=== PATIENT | female | born 1955 ===

== ENCOUNTER 2020-09-29 20:14 | Emergency (ER) | payer MEDICARE, MEDICAID ==
[~2020-09-29] VITALS: Ht 162.6 cm; Wt 74.8 kg
[2020-09-29 20:21] VITALS: BP 138/74
--- NOTE | 2020-09-29 20:30 | NUR ---
PT AMBULATED FROM EMS [facility]NEY TO ER BED 6
--- NOTE | 2020-09-29 20:43 | NUR ---
X-Ray at bedside.
--- NOTE | 2020-09-29 21:15 | NUR ---
Dr. Cha examining patient.
--- NOTE | 2020-09-29 21:25 | NUR ---
64 YO F BIBA AFTER MECHANICAL FALL AT [facility] WITH C/O PAIN TO R ANKLE, R ARM, AND R SHOULDER PAIN 0/10. LIMITED ROM OF R FOOT, PEDAL PULSE STRONG AND BILAT, AND WARM TO TOUCH. NO BRUISES PRESENT. PT DENIED HITTING HEAD. BED LOCKED IN LOWEST POSITION, SIDE RAILS X2. HX: HTN, SCHIZOPHRENIA, AND DM RX: WASNT ABLE TO RECALL NKA
--- NOTE | 2020-09-29 22:00 | NUR ---
PTS RIGHT FOOR WAS PLACED IH A SHORT POSTERIOR SPLINT. PTS PMSC WNL. PT WAS ALSO GIVEN CRUTCHES, PTS SHOWED GOOD USE OF CRUTCHES.
[2020-09-29 22:09] VITALS: BP 138/74
--- NOTE | 2020-09-29 22:15 | NUR ---
Catherine burroughs in EDM - 09/30/20 at 0530 by MED PTS RIGHT FOOR WAS PLACED IH A SHORT POSTERIOR SPLINT. PTS PMSC WNL. PT WAS ALSO GIVEN CRUTCHES, PTS SHOWED GOOD USE OF CRUTCHES.
== END 2020-09-29 22:09 | disposition home or self-care (01) ==
LOC: MED 20:14
DX: S92.354A Nondisplaced fracture of fifth metatarsal bone, right foot, initial encounter for closed fracture (principal); E11.9 Type 2 diabetes mellitus without complications; I10 Essential (primary) hypertension; F20.9 Schizophrenia, unspecified; W19.XXXA Unspecified fall, initial encounter; Y93.89 Activity, other specified; Y92.89 Other specified places as the place of occurrence of the external cause; Y99.8 Other external cause status
CPT/HCPCS: 29515; 73610; 73630; 99284